=== PATIENT | female | born 1970 | race Two or more races ===

== ENCOUNTER 2018-10-15 21:22 | Emergency (ER) | payer SELFPAY ==
[~2018-10-15] VITALS: Ht 149.9 cm; Wt 84.3 kg
[2018-10-16] MEDS ORDERED: SODIUM CHLORIDE 0.9% 1,000 ML IV ONE (02:08)
[2018-10-16] MEDS ORDERED: KETOROLAC 30MG/ML VIAL IV STA (02:08)
[2018-10-16 02:47] LABS: BASOPHILS % 1.2 % (0.0-2.0); EOSINOPHILS % 2.1 % (0.0-5.0); HEMATOCRIT. 49.2 % (36.0-48.0); HEMOGLOBIN. 16.3 g/dL (12.0-16.0); LYMPHOCYTES % 30.7 % (20.0-50.0); MEAN CORPUSCULAR HEMOGLOBIN 29.5 pg (28.0-32.0); MEAN CORPUSCULAR VOLUME 88.9 fL (81.0-99.0); MONOCYTES % 8.3 % (2.0-8.0); NEUTROPHILS % 57.7 % (40.0-76.0); PLATELET 272 x1000/uL (130-400); RED BLOOD CELL COUNT 5.53 mill/uL (4.2-5.4); RED CELL DISTRIBUTION WIDTH 13.5 % (11.6-14.6)
[2018-10-16 02:48] LABS: CLARITY URINE CLOUDY (CLEAR); COLOR URINE DARK YELLOW (YELLOW); KETONES URINE 1+ (NEGATIVE); LEUKOCYTE ESTERASE URINE NEGATIVE (NEGATIVE); NITRITE URINE NEGATIVE (NEGATIVE); OCCULT BLOOD URINE NEGATIVE (NEGATIVE); PROTEIN URINE NEGATIVE (NEGATIVE); SPECIFIC GRAVITY URINE 1.033 (1.005-1.030); UROBILINOGEN URINE 0.2 E.U./dL (0.2-1.0)
[2018-10-16 02:53] LABS: CHLORIDE 104 mEq/L (98-107)
[2018-10-16] MEDS ORDERED: CEFTRIAXONE 1 G PREMIX 50 ML IV ONE (03:30)
[2018-10-16 04:42] VITALS: BP 137/77
== END 2018-10-16 05:50 | disposition home or self-care (01) ==
LOC: ER 21:22
DX: N12 Tubulo-interstitial nephritis, not specified as acute or chronic (principal); N76.0 Acute vaginitis; F17.200 Nicotine dependence, unspecified, uncomplicated; D72.829 Elevated white blood cell count, unspecified
CPT/HCPCS: 36415; 74176; 80053; 81003; 82962; 83690; 85025; 87040; 87086; 96361; 96365; 96366; 96375; 99284; J0696; J1885; J7030